=== PATIENT | male | born 1970 | race Caucasian/White ===

== ENCOUNTER → 2016-12-18 | Outpatient (CLI) | payer BC ==
--- NOTE | 2016-12-18 20:05 | REP ---
LEFT FOOT, FOUR VIEWS: HISTORY: Pain. There is no acute fracture or dislocation. The joint spaces are normal in appearance. IMPRESSION: There is no acute fracture or dislocation. Signed by Wilson Lara MD 12/19/2016 08:10 A
== END ==
LOC: M RAD 19:16
PROVIDERS: ATTEND Hospitalist
DX: M79.672 Pain in left foot (principal)